=== PATIENT | male | born 1980 | race Caucasian/White ===

== ENCOUNTER 2020-05-02 19:11 | Emergency (ER) | payer BC ==
[~2020-05-02] VITALS: Ht 182.9 cm; Wt 83.9 kg
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
--- NOTE | 2020-05-02 21:20 | NUR ---
AWAITING XRAY ORDERS.
[2020-05-02] MEDS ORDERED: NAPROXEN 250 MG TABLET ONE (22:13)
[2020-05-02] MEDS ORDERED: HYDROCODONE/APAP 5/325MG TABLET ONE (22:13)
[2020-05-02] MEDS ORDERED: NAPROXEN 500 MG TABLET PO SCH (22:30)
[2020-05-02] MEDS ORDERED: HYDROCODONE/APAP 5/325MG TABLET PO ONE (22:30)
--- NOTE | 2020-05-02 22:34 | NUR ---
EMT AT BEDSIDE FOR SPLINT
--- NOTE | 2020-05-02 22:41 | NUR ---
Patient discharged to home in stable condition. Written and verbal after care instructions given. Patient verbalizes understanding of instruction and rx. Pt ambulated using crutches.
[2020-05-02 22:42] VITALS: BP 138/79
== END 2020-05-02 22:43 | disposition home or self-care (01) ==
LOC: ER 19:16
DX: S92.192A Other fracture of left talus, initial encounter for closed fracture (principal); X58.XXXA Exposure to other specified factors, initial encounter; Y93.39 Activity, other involving climbing, rappelling and jumping off; Y92.89 Other specified places as the place of occurrence of the external cause; Y99.8 Other external cause status
CPT/HCPCS: 73610-TC; 73630-TC; 73650-TC